=== PATIENT | male | born 1970 | race Caucasian/White ===

== ENCOUNTER → 2021-03-01 01:56 | Outpatient (CLI) | payer OTHER, SELFPAY ==
[2021-03-01 19:39] LABS: SARS-CoV-2 RNA PCR Negative
== END ==
PROVIDERS: PCP Family Medicine; Visit Provider Specialist
DX: Z01.812 Encounter for preprocedural laboratory examination (principal); Z20.822 Contact with and (suspected) exposure to COVID-19
CPT/HCPCS: C9803; U0003; U0005

== ENCOUNTER → 2021-03-18 00:12 | Outpatient (CLI) | payer OTHER, SELFPAY ==
[2021-03-18 19:15] LABS: SARS-CoV-2 RNA PCR Negative
== END ==
PROVIDERS: PCP Family Medicine; Visit Provider Internal Medicine Cardiovascular Disease
DX: Z01.812 Encounter for preprocedural laboratory examination (principal); Z20.822 Contact with and (suspected) exposure to COVID-19
CPT/HCPCS: C9803; U0003; U0005

== ENCOUNTER 2021-03-21 01:28 | Day surgery (SDC) | payer OTHER, SELFPAY ==
[2021-03-21] VITALS (8 sets, daily range): BP systolic 111–137; BP diastolic 72–92; PULSE 49–64; RESP 16–27; TEMP 36.4–36.6; O2SAT 96–98; BMI 34.7
[2021-03-21 07:59] LABS: Basophils Percent Auto 0.6 % (0.2-1.2); Eosinophils Absolute Auto 0.3 K/mm3 (0-0.3); Eosinophils Percent Auto 4.1 % (0-4.4); Hematocrit 41.9 % (42.0-52.0); Hemoglobin 13.8 g/dL (14.0-18.0); Immature Granulocyte Absolute 0.01 K/mm3 (0.00-0.031); Immature Granulocyte Percent A 0.2 % (0-0.5); Lymphocytes Percent Auto 23.8 % (18.3-44.2); Mean Corpuscular HGB Conc 32.9 g/dl (32-36); Mean Corpuscular Hemoglobin 28.8 pg (26-34); Mean Corpuscular Volume 87.3 fl (80-100); Mean Platelet Volume 10.3 fl (7.4-10.4); Monocytes Absolute Auto 0.5 K/mm3 (0.1-0.6); Monocytes Percent Auto 7.3 % (2.6-8.5); Platelet Count Result 221 k/mm3 (150-375); Red Cell Distribution Width 12.3 % (11.5-14.5); White Blood Count 6.3 K/mm3 (4.5-10.0)
[2021-03-21 08:10] LABS: Potassium 4.2 mmol/L (3.4-5.0)
[2021-03-21 08:11] LABS: Anion Gap 6 mmol/L (8-16); Blood Urea Nitrogen 26 mg/dL (9-20); Calcium 9.7 mg/dL (8.4-10.2); Carbon Dioxide 26 mmol/L (22-30); Chloride 109 mmol/L (98-107); Estimated CRCL calculation 77 ml/min; Estimated Glomerular Filt Rate 53; Glucose 119 mg/dL (75-110); Prothrombin Time 13.3 Seconds (11.1-14.7); Sodium 141 mmol/L (137-145)
--- NOTE | 2021-03-21 09:00 | WPDHPUPDATE1 ---
History and Physical Update Update Date/Time: 03/21/21 09:00 History and Physical has been reviewed, including an updated exam of the patient. Patient with infrequent angina but a large partially fixed and partially reversible anterior apical defect here for cardiac catheterization. He has done well since his office visit. He is accompanied by his mother, Dana. There are NO changes in the patient's condition. Risks, benefits, and alternatives have been discussed and questions answered. Reviewed possible risks and complications with patient including breathing problems, bleeding problems, blood vessel problems, unanticipated surgery, allergic reactions, kidney problems, CVA, [place], and among others. Discussed possibility of stenting and possible need for DAPT. Discussed the possibility that if DAPT is interrupted stent thrombosis can occur resulting in heart attack and . Patient understands risks and desires to proceed. Patient agrees to proceed with procedure.
--- NOTE | 2021-03-21 09:01 | WPDMODSED ---
Moderate Sedation Note-Pt Data Patient Data Diagnosis: Mr. garff is a 50-year-old male with hypertension, pre diabetes and history of smoking who I saw recently for abnormal stress test. He has occasional exertional angina. His stress test showed a large moderate to severe anterior anteroseptal septal apical inferior apical apical lateral mixed fixed and reversible defect with hypokinesis in the area and an ejection fraction of 50%. He is here for further evaluation of his coronary artery disease. Present Complaint: Angina, markedly abnormal stress test Procedure to be performed/Plan: Conscious sedation Cardiac catheterization Possible PCI Allergies Allergy/AdvReac Type Severity Reaction Status Date / Time No Known Allergies Allergy Verified 03/21/21 07:45 Home Medications Medication Instructions Recorded Confirmed Type metformin 500 mg tablet 500 mg PO BID #60 tablet 01/25/21 03/21/21 Rx aspirin 81 mg tablet,delayed 81 mg PO DAILY 02/21/21 03/21/21 History release atorvastatin 40 mg tablet 40 mg PO DAILY 02/21/21 03/21/21 History metoprolol succinate 25 mg 25 mg PO DAILY 02/21/21 03/21/21 History tablet,extended release 24 hr losartan 100 1 tablet PO DAILY #30 tablet 03/07/21 03/21/21 Rx mg-hydrochlorothiazide 12.5 mg tablet Current Medications: Active Medications Sodium Chloride (Normal Saline Iv) 500 mls @ 100 mls/hr IV CONT .Q5H FIDENCIO Sedation/Anesthesia: No previous sedation/anesthesia problems (including family history). [facility] Past Medical History Medical History History of tuberculosis HTN (hypertension) Prediabetes Surgical History Surgical History History of lymph node excision Family History Family History Sibling Hypertension Family history of alcoholism Family history of cardiovascular disease Father Family history of coronary artery disease Hypertension Mother No problems noted. Social History Social History Smoking packs per day: 2 Smoking cigarettes per day: 40.0 Years smoked: 30 Smoking pack-years: 60.00 Tobacco type: cigarettes Smoking end date: 11/16/16 Alcohol intake: never Substance use: never Substance use type: does not use Gender identity (if verbalized by the patient): Male Mod Sed Physical Exam Physical Exam Pre Procedural Exam: Normal: Appearance, Eyes, Ears, Nose, Neck, Throat, Lungs, Heart Size, Heart Rate, Heart Rhythm, Neuro Exam, Abdomen, Liver and Extremities (Good femoral pulse with no inguinal rash) and Variation: Airway (Missing some teeth some broken teeth) and Skin (Rash on left toe, probably athlete's foot) Hours since solid foods: 12 Hours since liquid intake: 12 Internal Medicine - PN: Obj Da Vital Signs Vital Signs: Vital Signs - 24 hr 03/21/21 08:14 Temperature 97.5 F L Pulse Rate 54 L Respiratory Rate 27 H Blood Pressure 137/84 Pulse Oximetry 98 Meds/Results Medications: Active Medications Generic Name Dose Route Start Last Admin Trade Name Freq PRN Reason Stop Dose Admin Sodium Chloride 500 mls @ 100 mls/hr 03/21/21 07:00 Normal Saline Iv IV CONT .Q5H FIDENCIO Labs CBC & Chem 7: 03/21/21 07:31 03/21/21 07:31 Labs: Laboratory Results - last 24 hr 03/21/21 03/21/21 03/21/21 07:31 07:31 07:31 WBC 6.3 RBC 4.80 Hgb 13.8 L Hct 41.9 L MCV 87.3 MCH 28.8 MCHC 32.9 RDW 12.3 Plt Count 221 MPV 10.3 Immature Gran % (Auto) 0.2 Neut % (Auto) 64.0 Lymph % (Auto) 23.8 [place] % (Auto) 7.3 Eos % (Auto) 4.1 Baso % (Auto) 0.6 Lymph # (Auto) 1.50 [place] # (Auto) 0.5 Eos # (Auto) 0.3 Baso # (Auto) 0.0 Abs Immat Gran (auto) 0.01 Absolute Neuts (auto) 4.0 A
--- NOTE | 2021-03-21 11:02 | PM.OP ---
Procedure Note - Brief Procedure Note - Brief Date of procedure: 03/21/21 Pre-op diagnosis: abnormal stress test and chest pain Post-op diagnosis: other (CAD) Procedure performed: conscious sedation left heart catheterization with ventriculography Description of procedure: uneventful cardiac catheterization Anesthesia: local ( with conscious sedation) Surgeon: Carmita Azar MD Complications: No immediate complications Condition: stable Disposition: observation Findings: Occluded mid Left anterior descending Left anterior descending fills well by collaterals from the RCA and circumflex Mild left ventricular dysfunction, EF 45-50%
--- NOTE | 2021-03-21 11:05 | SUR.PHASEII ---
BEGIN PHASE II RECOVERY. RETURNS TO TELEPHONE APPOINTMENT CLERK 4 S/P [facility] W/ DR. MOLINA. ANGIOSEAL CLOSURE TO R. GROIN PUCTURE SITE. DRESSING C/D/I. SITE SOFT, NONTENDER. NO BLEEDING OR HEMATOMA NOTED. REVIEWED BEDREST ACTIVITY RESTRICTIONS. IVF'S RUNNING ORDERED. R. PEDAL PULSE PALP STRONG. VSS. WILL CONTINUE TO MONITOR.
--- NOTE | 2021-03-21 11:19 | WPDCARDPROC ---
Cardiac Cath Procedure Note Date of procedure:: 03/21/21 Performing physician:: Carmita Azar MD Indication:: 50-year-old male with occasional exertional angina and a very abnormal stress test showing a large area of ischemia and partial infarction of the anterior apical gao. Brief clinical history:: As above Procedure Procedure note:: Procedure: 1. Conscious sedation 2. Left heart catheterization 3. Selective Coronary angiography 4. Left ventriculography 5. Angiography the right common femoral artery Site: Right femoral artery Catheters: 5 [place] arterial sheath, 5 [place] 4 cm right and left Manolo catheters, 5 [place] pigtail catheter Conscious sedation: The patient has no known prior history of adverse affects of conscious sedation. Oropharynx was clear. The patient is deemed a good candidate for conscious sedation. Conscious sedation began at: 1031 Conscious sedation ended at: 10 50 Total conscious sedation time: 19 minutes Medications: Versed 1 mg, fentanyl 50 mcg IV push The patient had continuous hemodynamic monitoring, and was also continuously monitored by: Na Edwards RN The patient tolerated conscious sedation well. Detailed procedure: After informed consent the patient brought to the general labor and the right femoral area was prepped and draped in the usual fashion. After conscious sedation and local anesthesia the right femoral artery was punctured and cannulated with the arterial sheath. Selective Coronary angiography was performed with the coronary catheters in multiple projections. These were withdrawn. The pigtail catheter was advanced into the central circulation and left ventricle for pressure measurements and left ventriculography which was performed in the FIELD projection. This was withdrawn. angiography of the right common femoral artery was performed to verify the position of the sheath which is in suitable position for an Romulo vascular closure device. Angio-Seal was applied, sheath was removed and hemostasis obtained. The patient tolerated the procedure well with no complications. Estimated blood loss was negligible. Findings:: Pressures: Pre angiographic aortic pressure was 110/80 and LV was 120/12. Post angiography the aortic pressure was 120/ 70 and LV was 120/ 10 mmHg. Left coronary artery: The left main was patent. The Left anterior descending gave rise to a very large branching 1st diagonal then was completely occluded. It filled via collaterals from the left and right systems. The circumflex had very mild luminal irregularities and was a dominant vessel. Right coronary artery: The small right coronary artery was free of disease and gave collaterals to the Left anterior descending as well. Left ventriculogram: Left ventriculography revealed [id number] hypokinesis of the anterolateral wall and apex. The estimated ejection fraction is 45%. There is no mitral regurgitation. 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 The Left anterior descending fills well via collaterals from the right and left systems. Mild to moderate hypokinesis of the anterolateral wall and apex with an ejection fraction of 45% Normal pressures Recommendations: The patient has good collateral flow to the Left anterior descending. We will continue medical therapy at this time with the addition of sublingual nitroglycerin. If he has significant symptomatology we can attempt PCI of the chronic total occlusion of the Left anterior descending. He was strongly advised to cease activity if he develops angina and call us if there is a change in anginal symptoms. We will schedule office follow-up.
--- NOTE | 2021-03-21 12:48 | SUR.PHASEII ---
BEDREST X 2 HOURS COMPLETE. TOLERATED WELL. UP TO VOID, THEN TO CHAIR AT BEDSIDE. NO CHANGES R. GROIN SITE.
--- NOTE | 2021-03-21 14:42 | SUR.PHASEII ---
DISCHARGE INSTRUCTIONS REVIEWED W/ PT. BY SUYAPA ENGEL RN. VOICED UNDERSTANDING OF ALL. COPY GIVEN. PT. DISCHARGED HOME, OUT VIA WC TO FAMILY'S WAITING CAR, WITH ALL PERSONAL BELONGINGS AND DISCHARGE PACKET. R. GROIN SITE REMAINS CLEAR, DRESSING C/D/I. SOFT, NONTENDER. R. PEDAL PULSE PALP STRONG. NO DISTRESS NOTED. NO C/O VOICED.
== END 2021-03-21 14:42 | disposition home or self-care (01) ==
PROVIDERS: PCP Family Medicine; Visit Provider Internal Medicine Cardiovascular Disease
PROC: 4A023N7 Measurement of Cardiac Sampling and Pressure, Left Heart, Percutaneous Approach (ICD-10-PCS; CPT 93452; principal; 2021-03-21 10:00)
DX: I25.10 Atherosclerotic heart disease of native coronary artery without angina pectoris (principal); R94.39 Abnormal result of other cardiovascular function study; R07.89 Other chest pain; I10 Essential (primary) hypertension; R73.03 Prediabetes; R06.00 Dyspnea, unspecified; Z79.84 Long term (current) use of oral hypoglycemic drugs
CPT/HCPCS: 36415; 80048; 85025; 85610; 93458; C1760; C1887; C1894; C9803; G0269; J1644; J2250; J3010; J7040; U0003; U0005

== ENCOUNTER → 2021-03-26 11:40 | Outpatient (CLI) | payer OTHER, SELFPAY ==
--- NOTE | ~2021-03-26 | US_ITS ---
EXAMINATION: US thyroid DATE: 03/26/2021 12:00 INDICATION: Thyrotoxicosis TECHNIQUE: Multiple ultrasound images of the thyroid were obtained. COMPARISON: None. FINDINGS: The right thyroid lobe measures 6.2 x 2.5 x 2.4 cm. The left thyroid lobe measures 5.4 x 2.4 x 2.5 c m. Thyroid isthmus measures 8 mm in thickness. Diffusely coarsened echotexture throughout the thyroid . 5 mm solid hypoechoic nodule with smooth margins at the superior left thyroid lobe (TI-RADS 4, mode rately suspicious , FNA if >=1.5 cm, annual followup is >=1 cm) . IMPRESSION: 1. 5 mm TI RADS 4 nodule at the superior left thyroid which remains below TI RADS criteria for biopsy or follow-up imaging. 2. Nonspecific thyromegaly. Reviewed, dictated and finalized at location A. IMPRESSION: 1. 5 mm TI RADS 4 nodule at the superior left thyroid which remains below TI RA DS criteria for biopsy or follow-up imaging. 2. Nonspecific thyromegaly.
== END ==
PROVIDERS: Visit Provider Physician Assistant
DX: E05.90 Thyrotoxicosis, unspecified without thyrotoxic crisis or storm (principal)
CPT/HCPCS: 76536